=== PATIENT | female | born 1930 | race Caucasian/White ===

== ENCOUNTER → 2017-06-20 | Outpatient (CLI) | payer MEDICARE, OTHER ==
[~2017-06-20] MED LIST: ACETAMINOPHEN PO; ADVIL200 M2 PO; ALBUTEROL MININEB NEB; ALBUTEROL0.83 MG/ML NEB; AMIODARONE HCL100 MG PO; AMLODIPINE BESYL5 MG PO; ASPIRIN; AZITHROMYCIN250 MG PO; BETAMETHASONE D50 GM; CARDIZEM CD120 MG PO; CELEXA10 MG PO; CITALOPRAM HBR10 MG PO; CLARITIN10 M2 PO; COMBIVENT INH14.7 G1 IH; COMBIVENT INH14.7 GM INH; CYANOCOBAL1000 MCG/1 IJ; CYANOCOBAL1000 MCG/1 INJ; CYMBALTA PO; CYMBALTA30 MG PO; DEXAMETHASONE0.5 MG PO; DOCU SOFT100 M1 PO; EXFORGE HCT 5-1 EACH PO; FERRO-TIME325 MG PO; FLONASE 0.05% N16 G1; FLONASE16 GM; FUROSEMIDE40 MG PO; HYDRALAZINE HCL25 MG PO; IMDUR-ER30 M1 PO; K-DUR20 ME1 PO; K-DUR20 ME2 PO; LASIX PO; LASIX20 MG PO; LEXAPRO PO; LEXAPRO20 MG PO; LEXAPRO5 MG PO; LISINOPRIL10 MG PO; LOPRESSOR PO; LORTAB 5-325 M1 EACH PO; LOTRISONE CREAM45 GM TOP; LOW DOSE ASPIRI81 M1 PO; MELATONIN1 MG PO; MELATONIN3 M4 PO; METOLAZONE5 MG PO; METOPROLOL SUCC25 MG; METOPROLOL TAR25 MG PO; METOPROLOL TART25 MG PO; MI-ACID, M355 ML/SU1 PO; MILK OF MAGNESIA PO; MUCINEX DM ER1 EACH PO; MUCINEX100 MG/5 M; MULTI-VITAMIN1 EAC1 PO; OMNICEF PO; OMNICEF300 M1 PO; OXYGEN INH; PERFOROMIS20 MCG/2 M NEB; PRAVACHOL20 MG; PRAVACHOL20 MG PO; PREMARIN VAG CR45 GM; PREMARIN VAG CR45 GM MC; PREMARIN VAG CR45 GM VAG; PROCRIT20000 U/ML INJ; PROVENTIL0.83 MG/ML IH; PROVENTIL0.83 MG/ML NEB; SENNA8.6 M1 PO; SENNA8.6 M2 PO; SIMVASTATIN20 MG PO; SPIRIVA18 MCG INH; SYMBICORT; SYMBICORT INH; SYMBICORT80 INH; TRAMADOL HCL50 M1 PO; TUSSIN100 MG/51 PO; TYLENOL325 M1 PO; VANTIN200 MG PO; VITAMIN D-32000 UNIT PO; VITAMIN D32000 UNI1 PO; XARELTO20 MG; XARELTO20 MG PO; ZOCOR20 MG PO; ZOFRAN ODT4 MG/UDTAB PO; ZOFRAN PO; ZOFRAN8 MG PO
== END | disposition home or self-care (01) ==
LOC: CSSDAY 10:30
DX: D83.9 Common variable immunodeficiency, unspecified (principal); Z79.899 Other long term (current) drug therapy
CPT/HCPCS: 96365; 96366; J1569

== ENCOUNTER → 2017-07-18 | Outpatient (CLI) | payer MEDICARE, OTHER | END | disposition home or self-care (01) | LOC: CSSDAY 09:07 | DX: D83.9 Common variable immunodeficiency, unspecified (principal); Z79.899 Other long term (current) drug therapy | CPT/HCPCS: 96365; 96366; J1569 ==